=== PATIENT | female | born 1970 | race Two or more races ===

== ENCOUNTER 2025-01-29 09:48 | Emergency (ER) | payer OTHER ==
[~2025-01-29] VITALS: Ht 167.6 cm; Wt 62.6 kg
[2025-01-29] MEDS ORDERED: 0.9 % SODIUM CHLORIDE 1,000 ML IV STA (10:29)
[2025-01-29] MEDS ORDERED: FAMOtidine 10 MG/ML (4ML VIAL) IV STA (10:30)
[2025-01-29] MEDS ORDERED: ONDANSETRON HCL 2 MG/ML VIAL IV ONE (10:30)
[2025-01-29] MEDS ORDERED: FAMOTIDINE/PF 20 MG/2 ML VIAL ONE (10:44)
[2025-01-29] MEDS ORDERED: ONDANSETRON HCL 2 MG/ML VIAL ONE (10:44)
[2025-01-29 11:56] LABS: HEMATOCRIT 40.5 % (36.0-45.00); HEMOGLOBIN 13.5 g/dL (12.0-15.00); MEAN CELL VOLUME 88.5 fL (80.00-100.00); MEAN CORPUSCULAR HEMOGLOBIN 29.4 pg (27.00-32.0); MEAN CORPUSCULAR HGB CONC 33.3 g/dl (32.0-36.0); PLATELET COUNT 255 K/uL (150-450); RED BLOOD COUNT 4.58 M/uL (4.00-6.00); RED CELL DISTRIBUTION WIDTH 13.5 % (11.5-14.5)
[2025-01-29 12:46] LABS: CALCIUM 9.8 mg/dL (8.5-10.1); CREATININE SERUM 0.48 mg/dL (0.55-1.02); GFR 134.27; POTASSIUM 4.56 mEq/L (3.5-5.1)
[2025-01-29 12:48] LABS: PH,URINE 5.5 (5.0-8.0); URINE APPEARANCE Clear; URINE BILIRRUBIN Negative (NEGATIVE); URINE BLOOD Trace; URINE COLOR Yellow; URINE GLUCOSE Negative (NEGATIVE); URINE KETONE 15 (NEGATIVE); URINE LEUKOCYTE Moderate; URINE NITRATE Negative; URINE PROTEIN Negative (NEGATIVE); URINE UROBILINOGEN 0.2 E.U./dl
[2025-01-29 12:51] LABS: URINE BACTERIA 100.3 uL (0.0-1933); URINE EPITHELIAL CELLS 6.1 uL (0.0-38.8); URINE RBC 4.4 uL (0.0-20.8); URINE WBC 43.6 uL (0.0-23.2)
== END 2025-01-29 16:00 | disposition home or self-care (01) ==
LOC: ER 09:49
PROVIDERS: General Practice
DX: K52.89 Other specified noninfective gastroenteritis and colitis (principal); R19.7 Diarrhea, unspecified